=== PATIENT | male | born 1955 | race African-American/Black ===

== ENCOUNTER 2019-05-18 18:11 | Emergency (ER) | payer MEDICARE ==
[~2019-05-18 18:11] MED LIST: BACTRIM DS TABL1 TAB PO; HYDROCODONE-APA1 TAB PO
[2019-05-18 18:18] VITALS: Ht 188 cm
[2019-05-18] MEDS ORDERED: VIBRAMYCIN 100100 MG PO (19:10)
[2019-05-18 20:36] VITALS: BP 174/115
== END 2019-05-18 20:36 | disposition home or self-care (01) ==
LOC: D.ER 18:11
DX: M79.671 Pain in right foot (principal); M79.5 Residual foreign body in soft tissue; W22.8XXA Striking against or struck by other objects, initial encounter; Y93.01 Activity, walking, marching and hiking; Y92.9 Unspecified place or not applicable

== ENCOUNTER 2019-06-23 16:38 | Inpatient (IN) | payer MEDICARE ==
[~2019-06-23] VITALS: Ht 185.4 cm; Wt 181.8 kg
--- NOTE | ~2019-06-23 | HEMODYNAMI ---
PATIENT:AKOSUA IVORY MEDICAL RECORD: [id number] : 57 [id number] ADMISSION DATE: 06/23/19 Generatedon:06/25/201912:25 Patient name: AKOSUA IVORY Patient #: [id number] : 1955 Date of study: 06/25/2019 Page: Of Hemodynamic Procedure Report Patient Data Patient Demographics Procedure consent was obtained First Name: AKOSUA Gender: Male Last Name: DIANELYS : 1955 Patient #: [id number] Age: 63 year(s) Race: Black SSN: [id number] Additional ID: [id number] Contact details Address: [address] [place] [address] [address] State: [place]: [facility] [place] code: [address] Admission Admission Data Admission Date: 06/23/2019 Admission Time: 16:38 Arrival Date: 06/23/2019 Arrival Time: 16:38 Admit Source: Emergency Insurance Payor: Medicare department HIC #: [id number] Room #: D.2133 Height (in.): 62.2 BSA: 2.57 (m2) Height (cm.): 158 BMI: 72.5 (kg/m2) Weight (lbs.): 399.04 Weight (kg.): 181 Lab Results Lab Result Date: 06/25/2019 Lab Result Time: 0:00 Biochemistry Name Units Result Min Max BUN mg/dl 20 --(----)*- 7 18 Creatinine mg/dl 1.9 --(----)-* 0.6 1.3 eGFR ml/min 46 *-(----)-- 90 120 AM CBC Name Units Result Min Max Hemoglobin g/dl 13.4 -*(----)-- 13.5 17.5 Procedure Procedure Types Cath Procedure Diagnostic Procedure LHC LHC w/Coronaries Sedation Charges Moderate Sedation up to 15 minutes Procedure Description Procedure Date Procedure Date: 06/25/2019 Procedure Start Time: 11:55 Procedure End Time: 12:21 Procedure Staff Name Function Octavio Peraza MD Performing Physician Sherry Squires RT Monitor Cherri Page RT Scrub Coco Carranza RN Nurse Procedure Data Cath Procedure Fluoroscopy Diagnostic fluoroscopy Total fluoroscopy Time: 1.9 time: 1.9 min min Diagnostic fluoroscopy Total fluoroscopy dose: 618 dose: 618 mGy mGy Contrast Material Contrast Material Type Amount (ml) Isovue 300 37 Entry Location Entry Primary Successful Side Size Upsize Upsize Entry Closure Elena ccessful Closure Location (Fr) 1 (Fr) 2 (Fr) Remarks Device Remarks Radial Right 6 Fr Mechanical artery Short Compression Estimated blood loss: 5 ml Diagnostic catheters Device Type Used For End Catheter Placement DIAGNOSTIC [place] 110cm 5 Multi-vessel Fr catheter ([id number]) Angiography Procedure Complications No complications Procedure Medications Medication Administration Route Dosage Oxygen etCO2 Nasal cannula 3 l/min Lidocaine 2% added to field 20 Heparin Flush Bag added to field 2 bags (1000units/500ml NS) 0.9% NaCl I.V. 100 ml/hr Versed I.V. 1 mg Fentanyl I.V. 50 mcg Versed I.V. 1 mg Fentanyl I.V. 50 mcg Fentanyl I.V. 50 mcg Fentanyl I.V. 50 mcg Radial Cocktail I.A. 1 syringe (Verapamil 2mg/Nitro 400mcg/Heparin 1500units) Hemodynamics Rest BSA: 2.57 (m2) HGB: 13.4 (g/dl) O2 Consumption: Estimated: 302.03 (ml/min) O2 Co nsumption indexed: Estimated:117.52 (ml/min/m) Heart Rate: 71 (bpm) Pressure Samples Time Site Value (mmHg) Purpose Heart Use Rate(bpm) 12:14 LV 122/15,17 Snapshot 97 Snapshots Pre Cath Intra NCS Post Cath Vital Signs Time Heart Resp SPO2 etCO2 NIBP (mmHg) Rhythm Pain Sedation Rate (ipm) (%) (mmHg) Status Level (bpm) 11:51:29 75 15 96 0 186/129(151) NSR 0 (11) 10(A) , No pain 11:55:59 75 24 98 31.8 185/114(145) NSR 0 (11) 10(A) , No pain 12:00:30 74 21 99 30.3 176/123(141) NSR 0 (11) 10(A) , No pain 12:05:00 73 14 98 26.5 195/118(141) NSR 0 (11) 10(A) , No pain 12:09:22 64 25 97 32.6 175/112(140) NSR 0 (11) 10(A) , No pain 12:13:45 73 18 99 20.5 173/122(135) NSR 0 (11) 10(A) , No pain 12:18:11 75 28 96 28.8 163/112(137) NSR 0 (11) 10(A) , No pain Medications Time Medication Route Dose Verified Delivered Reason Notes Effectiveness by by 11:49:40 Oxygen etCO2 3 l/min Octavio Sepulvdea used for Nasal Karmen Carranza RN procedure cannula 11:49:47 Lidocaine 2% added 20ml Octavio Cunningham for local to vial Karmen Peraza MD anesthetic field 11:49:53 Heparin Flush added 2 bags Octavio Cunningham used for Bag to Karmen Peraza MD procedure (1000units/500ml field NS) 11:50:01 0.9% NaCl I.V. 100 Octavio Sepulveda Per ml/hr Karmen Carranza RN physician 11:54:36 Versed I.V. 1 mg Octavio Sepulveda for sedation Karmen Carranza RN 11:54:43 Fentanyl I.V. 50 mcg Octavio Sepulveda for sedation Karmen Carranza RN 12:00:06 Versed I.V. 1 mg Octavio Sepulveda for sedation Karmen Carranza RN 12:00:10 Fentanyl I.V. 50 mcg Octavio Sepulveda for sedation Karmen Carranza RN 12:06:33 Fentanyl I.V. 50 mcg Octavio Sepulveda for sedation Karmen Carranza RN 12:13:12 Radial Cocktail I.A. 1 Octavio Cunningham for (Verapamil syringe Karmen Peraza MD vasodilation 2mg/Nitro 400mcg/Heparin 1500units) 12:14:09 Fentanyl I.V. 50 mcg Octavio Sepulveda for sedation Kamren Carranza RN Procedure Log Time Note 11:30:47 Informed consent obtained and on chart 11:33:47 Diagnostic Cath Status : Urgent 11:34:04 Coco Carranza RN sent for patient. Start room use. 11:34:05 Time tracking: Regular hours (M-F 7:00 - 5:00) 11:34:11 Plan of Care:Hemodynamics will remain stable., Cardiac rhythm will remain stable., Comfort level will be maintained., Respiratory function will remain adequate., Patient/ family verbilizes understanding of procedure., Procedure tolerated without complication., Recovers from procedure without complications.. 11:34:24 Arrival Date: 06/23/2019 4:38:00 PM 11:34:47 Admit Source: Emergency department 11:34:55 Insurance Payor : Medicare 11:35:01 Patient Height : 62.2 inches 11:35:05 Patient Weight : 399.04 lbs 11:35:33 Lab Result : Hemoglobin 13.4 g/dl 11:35:33 Lab Result : eGFR AM 46 ml/min 11:35:33 Lab Result : BUN 20 mg/dl 11:35:33 Lab Result : Creatinine 1.9 mg/dl 11:35:40 Patient received from Med II to CCL 1 Alert and oriented. Tansferred to table in Supine position. 11:35:41 Warm blankets applied, and david hugger turned on for patient comfort. 11:35:41 Correct patient and procedure confirmed by team. 11:35:42 ECG and BP/O2 sat monitors applied to patient. 11:49:29 Vital chart was started 11:49:40 Oxygen 3 l/min etCO2 Nasal cannula was administered by Coco Carranza RN; used for procedure; Verbal order read back and verified. 11:49:47 Lidocaine 2% 20ml vial added to field was administered by Octavio Peraza MD; for local anesthetic; Verbal order read back and verified. 11:49:53 Heparin Flush Bag (1000units/500ml NS) 2 bags added to field was administered by Octavio Peraza MD; used for procedure; Verbal order read back and verified. 11:50:01 0.9% NaCl 100 ml/hr I.V. was administered by Coco Carranza RN; Per physician; Verbal order read back and verified. 11:50:51 Baseline sample Acquired. 11:50:59 Rhythm: sinus rhythm 11:51:01 Full Disclosure recording started 11:51:10 H&P Date Dictated: 06/25/2019 Within 30 days and on chart., H&P Addendum completed by physician on day of procedure. (MUST COMPLETE FOR ALL OUTPATIENTS). 11:51:39 Pre-procedure instructions explained to patient. 11:51:39 Pre-op teaching completed and patient verbalized understanding. 11:51:41 Family in waiting room. 11:51:45 Patient NPO since Midnight. 11:51:47 Is the patient allergic to Iodine/contrast media? No. 11:51:53 Was the patient premedicated? Yes 11:52:10 Is patient on blood thinner?Yes 11:52:14 ACC The patient was administered the following blood thiners within the last 24 hours: ACCPlavix 11:52:29 Patient diabetic? No. 11:52:33 Previous problem with sedation/anesthesia? Yes ? 11:52:51 Snore? Yes 11:52:52 Sleep apnea? Yes 11:52:54 Deviated septum? No 11:52:54 Opens mouth fully? Yes 11:52:56 Sticks out tongue? Yes 11:53:00 Airway obstruction? No ? 11:53:13 Dentures? No ? 11:53:16 Pre procedure: right dorsailis pedis pulse 2+ Normal; easily identifiable; not easily obliterated 11:53:18 Pre procedure: left dorsailis pedis pulse 2+ Normal; easily identifiable; not easily obliterated 11:53:24 IV patent on arrival in left forearm with 0.9% NaCl at [facility]. 11:53:27 Lab results completed and on chart. 11:53:33 Stress Test: no; N/A ? 11:53:38 Right Radial & Right Groin area was prepped with chlora-prep and draped in sterile fashion 11:53:38 Alarms reviewed by R. N. 11:53:39 Sharps counted by scrub and verified by R.N. 11:53:41 Physician arrived 11:53:41 --------ALL STOP TIME OUT------ 11:53:42 Final Timeout: patient, procedure, and site verified with staff and physician. All members of the team are in agreement. 11:53:44 Right Radial & Right Groin site verified by team. 11:53:47 Fire Safety Assessment: A--An alcohol-based skin anteseptic being used preoperatively., C--Open oxygen or nitrous oxide is being used., D--An ESU, laser, or fiber-optic light is being used. 11:54:17 Physical assessment completed. ASA score P 2 - A patient with mild systemic disease as per Octavio Peraza MD. 11:54:36 Versed 1 mg I.V. was administered by Coco Carranza RN; for sedation; Verbal order read back and verified. 11:54:43 Fentanyl 50 mcg I.V. was administered by Coco Carranza RN; for sedation; Verbal order read back and verified. 11:54:49 3a) 45-59 Moderately reduced kidney function. 11:54:53 Maximum allowable contrast dose (3.7 X eGFR X 0.75)127 ml. 11:54:57 Sedation plan: IV Moderate Sedation Medication:Versed, Fentanyl 11:55:00 Use device set Radial Dx or PCI 11:55:01 ACIST Syringe (32915) opened to sterile field. 11:55:02 Medline Cath Pack ([id number]) opened to sterile field. 11:55:02 Bag Decanter (2002S) opened to sterile field. 11:55:03 ACIST Hand Control (95389) opened to sterile field. 11:55:03 ACIST Manifold (31411) opened to sterile field. 11:55:03 Tegaderm 4 x 4 (1626W) opened to sterile field. 11:55:04 MBrace Wrist Support ([id number]) opened to sterile field. 11:55:06 EMERALD Guide Wire (329-182) opened to sterile field. 11:55:08 SHEATH 6FR RAIN (3961415) opened to sterile field. 11:55:12 Procedure started. 11:55:17 Local anesthetic to right radial artery with Lidocaine 2% by Octavio Peraza MD.INITIAL ACCESS ONLY 12:00:06 Versed 1 mg I.V. was administered by Coco Carranza RN; for sedation; Verbal order read back and verified. 12:00:10 Fentanyl 50 mcg I.V. was administered by Coco Carranza RN; for sedation; Verbal order read back and verified. 12:06:33 Fentanyl 50 mcg I.V. was administered by Coco Carranza RN; for sedation; Verbal order read back and verified. 12:12:04 A 6 Fr Short sheath was inserted into the Right Radial artery 12:12:12 A DIAGNOSTIC [place] 110cm 5 Fr catheter (399340) was advanced over the wire and used for Multi-vessel Angiography. 12:13:12 Radial Cocktail (Verapamil 2mg/Nitro 400mcg/Heparin 1500units) 1 syringe I.A. was administered by Octavio Peraza MD; for vasodilation; Verbal order read back and verified. 12:14:09 Fentanyl 50 mcg I.V. was administered by Coco Carranza RN; for sedation; Verbal order read back and verified. 12:14:57 LV hemodynamics recorded. 12:14:58 LV gram done using DIAZ 12:15:01 Injector settings: Ml/sec: 5, Volume: 15, 12:15:07 EF : 35 % 12:15:12 LCA angiography performed. 12:15:14 Injector settings: Ml/sec: 3, Volume: 6, 12:16:16 RCA angiography performed. 12:16:18 Injector settings: Ml/sec: 3, Volume: 6, 12:17:10 Catheter removed. 12:17:16 ZEPHYR LARGE TR BAND (728539) opened to sterile field. 12:17:28 Sheath removed intact; hemostasis achieved with Mechanical Compression to the Right Radial artery. 12:17:30 Procedure ended.(Physican Out) 12:17:50 Fluoroscopy time 01.90 minutes. 12:17:55 Fluoroscopy dose: 618 mGy 12:17:55 Flurop Dose total: 618 12:18:02 Dose Area Product 96893 mGy/cm. 12:18:11 Contrast amount:Isovue 300 37ml. 12:18:12 Maximum allowable dose exceeded? No. 12:18:14 Sharps counted by scrub and verified by R.N. 12:18:16 [place] band inflated with 10cc of air. 12:18:18 Insertion/operative site no bleeding no hematoma. 12:18:26 Post right radial artery:stable 12:18:27 Post Procedure Pulses reassessed and unchanged 12:18:31 Post procedure rhythm: unchanged. 12:18:33 Estimated blood loss: 5 ml 12:18:34 Post procedure instruction explained to patient.Patient verbalizes understanding. 12:18:49 Patient needs reinforcement of post procedure teaching. 12:19:10 Procedure type changed to Cath procedure, Diagnostic procedure, LHC, LHC w/Coronaries, Sedation Charges, Moderate Sedation up to 15 minutes 12:19:11 Procedure and supply charges have been captured, reviewed, submitted and are correct. 12:19:15 Procedure Complication : No complications 12:19:18 Vital chart was stopped 12:19:24 [facility] Findings: mild to moderate CAD (<70%) 12:19:27 Operative report dictated upon procedure completion. 12:19:28 See physician's report for complete and final results. 12:20:55 Report given to [facility]. 12:20:58 Patient transfered to [facility] with Stretcher. 12:21:03 Procedure ended. 12:21:03 Full Disclosure recording stopped 12:21:12 End room use (Document Last) Device Usage Item Name Manufacture Quantity Catalog Hospital Part Current Minima l Lot# / Number Charge Number Stock Stock Serial# Code ACIST Acist 1 67063 028969 038332 043969 20 Syringe Medical (09677) Systems Inc Medline Medline 1 [id number] 17771 865612 5 Cath Pack ([id number]) Bag Microtek 1 2001S 190023 06272 507642 5 Decanter Medical Inc. () ACIST Hand Acist 1 47684 107230 818836 736345 5 Control Medical (15311) Systems Inc ACIST Acist 1 26288 581391 980301 304934 5 Manifold Medical (69111) Systems Inc Tegaderm 4 3M 1 1626W 132157 599574 995461 5 x 4 (1626W) MBrace Advanced 1 140-0250-00 909606 77775 893831 5 Wrist Vascular Support Dynamics ([id number]) EMERALD Cardinal 1 502-455 538558 165026 639741 5 Guide Wire Health (502-455) SHEATH 6FR Cardinal 1 [id number] 855740 4570431 733928 5 RAIN Health (8380848) DIAGNOSTIC Terumo 1 40-7270 983233 723650 835804 5 [place] 110cm 5 Fr catheter (277092) ZEPHYR Cardinal 1 435455 860905 2099394 949311 5 LARGE TR Health BAND (090470) Signature Audit [place] Stage Time Signature Unsigned Intra-Procedure 06/25/2019 Sherry Squires 12:24:56 PM RT(R) Intra-Procedure 06/25/2019 Coco Carranza RN 12:25:18 PM Intra-Procedure 06/25/2019 Octavio Peraza 12:25:48 PM [facility] [address] [facility] [place] [address]
--- NOTE | ~2019-06-23 | CN ---
PATIENT NAME:AKOSUA IVORY MEDICAL RECORD: [id number] : 57 LOCATION:D. D.2133 ADMIT DATE: 06/23/19 ACCOUNT: [id number] CONSULTING PHYSICIAN: CHETNA LAWSON MD REFERRING PHYSICIAN: DIEGO GEE MD DATE OF CONSULTATION: 06/24/2019 ADMITTING DIAGNOSES: 1. Congestive heart failure, chronic systolic dysfunction. 2. Cardiomyopathy. 3. Hypertension. 4. Angina. 5. Shortness of breath. 6. Edema. 7. Obesity. HISTORY OF PRESENT ILLNESS: This is a gentleman with no previous cardiac history, who for the past 6 months has had progressive edema, shortness of breath as well as chest heaviness and chest pressure. He has not had a cardiac evaluation. He had an echocardiogram at [facility] revealing cardiomyopathy, ejection fraction in the 35% range. He was in a marked fluid overload state. He is being admitted for diuresis. PHYSICAL EXAMINATION: CONSTITUTIONAL/GENERAL APPEARANCE: Well nourished, well developed, appears stated age. EYES: Lids and conjunctivae noninjected. No discharge. No pallor. ENT: Lips within normal limit. No cyanosis. No pallor. NECK: Carotid arteries, bilateral normal upstroke. No bruits. No thrills. No jugular venous pressure or distention. CERVICAL LYMPH NODES: Nontender. Nonenlarged. THYROID: Not enlarged. No nodules. CARDIOVASCULAR: Precordial exam, nondisplaced. No heaves or pericardial thrills. Rate and rhythm, regular. Heart sounds, normal S1, normal S2. No S3, no gallop, no rub. Systolic murmur, not heard. Diastolic murmur, not heard. RESPIRATORY: Respiratory effort, unlabored. Normal curvature. No thoracic deformity. No chest wall tenderness. Percussion, resonant. Auscultation, clear. No wheezes, no rales, no rhonchi. ABDOMEN: Soft, nondistended, nontender. No abdominal pain, no vomiting and normal appetite. MUSCULOSKELETAL: No joint tenderness, normal gait, normal tone. SKIN: Warm and dry. OVERALL IMPRESSION: Cardiomyopathy. He has a high likelihood that this is ischemic in nature. We will proceed with coronary angiography in the a.m. Continue diuresis, increase his Coreg, continue the Entresto, increase the Lasix frequency. Further care depends upon the results with the medical therapy as well as the results of the cardiac catheterization. TRANSINT:[id number] Voice Confirmation ID: [id number] DOCUMENT ID: [id number] CONSULT REPORT [id number] AKOSUA IVORY JEFFREY MD CC: [id number] DICTATION DATE: 06/24/19 1042 OCCUPATIONAL PHYSICIAN: 06/24/19 1553 ADM IN [facility] [address] [place] [id number]
--- NOTE | ~2019-06-23 | OP ---
PATIENT NAME: AKOSUA IVORY MEDICAL RECORD: [id number] :57 LOCATION:D.M2 D.2133 ADMISSION DATE:06/23/19 SURGEON: CHETNA LAWSON MD DATE OF OPERATION: 06/25/2019 PROCEDURES: 1. Left heart catheterization. 2. Selective coronary angiography. 3. Left ventriculogram. INDICATION: Cardiomyopathy, congestive heart failure. PROCEDURE IN DETAIL: After informed consent was obtained and after a detailed description of the risks, benefits as well as alternative therapies, the patient elected to proceed with angiogram and angioplasty. The radial area was prepped and draped in normal sterile fashion. Right radial artery was cannulated via modified Seldinger technique with placement of 6-Dutch sheath. All catheters exchanged through this sheath. FINDINGS: Left ventriculogram was performed in standard 30-degree DIAZ view, reveals global hypokinesis, ejection fraction in the 35% range. SELECTIVE CORONARY ANGIOGRAPHY: Left main, left anterior descending, left circumflex, right coronary are all smooth-walled vessels with no angiographic evidence of coronary artery disease. OVERALL IMPRESSION: 1. No angiographic evidence of coronary artery disease. 2. Normal left heart pressures. 3. No significant angiographic disease is present. Cardiomyopathy, nonischemic, ejection fraction 35%. Center medical management on treatment of the cardiomyopathy and congestive heart failure. TRANSINT:[id number] Voice Confirmation ID: [id number] DOCUMENT ID: [id number] CHETNA LAWSON MD CC: [id number] DICTATION DATE: 06/25/19 1223 COTTON BALL MACHINE TENDER: 06/25/19 1859 ADM IN [facility] [address] [place] [address]
[~2019-06-23 16:38] MED LIST changes: +VIBRAMYCIN 100100 MG PO
[2019-06-23 19:18] LABS: BASOPHILS 0.1 % (0-2); EOSINOPHILS 1.6 % (0-7); HEMATOCRIT 37.8 % (42.0-54.0); HEMOGLOBIN 12.8 g/dL (13.5-17.5); IMMATURE GRANULOCYTES 0.2 % (0-5); LYMPHOCYTES 23.2 % (15-50); MCHC 33.9 g/dL (31.0-37.0); MCV 85.5 fL (80.0-100.0); MEAN PLATELET VOLUME 10.1 fL (7.4-10.4); MONOCYTES 6.6 % (2-11); NEUTROPHILS 68.3 % (40-80); RBC 4.42 10x6/uL (4.20-6.10); RDW 14.5 % (11.5-14.5); WBC 8.2 10x3/uL (4.8-10.8)
[2019-06-23 19:26] LABS: PLATELET COUNT 352 10x3/uL (130-400)
[2019-06-23 19:37] LABS: ALBUMIN 3.4 g/dL (3.4-5.0); BILIRUBIN - TOTAL 0.84 mg/dL (0.2-1.3); CALCIUM 8.8 mg/dL (8.5-10.1); CARBON DIOXIDE 27.9 mmol/L (21.0-32.0); CREATININE - SERUM 1.6 mg/dL (0.6-1.3); MAGNESIUM - SERUM 1.9 mg/dL (1.8-2.4); POTASSIUM - SERUM 3.9 mmol/L (3.5-5.1); PROTEIN - SERUM 8.7 g/dL (6.4-8.2)
--- NOTE | 2019-06-23 20:00 | NUR ---
TALKED WITH NAZANIN MATOS ABOUT PATIENTS B/P, NEW ORDERS GIVEN AND WILL FOLLOW.
--- NOTE | 2019-06-23 22:50 | NUR ---
LEFT HAND PIV PLACED, 22 GAUGE 1 STICK PATIENT TOLERATED WELL. PT'S B/P 179/117, WILL TREAT PER JUN.
[2019-06-24] VITALS: BP 179/117
--- NOTE | 2019-06-24 01:21 | NUR ---
PATIENT COMPLAINS OF CHEST DISCOMFORT, MANNULA B/P OF 170/100, EKG DONE, SEA [place].
[2019-06-24 02:42] LABS: CKMB 0.7 U/L (0.0-3.6); CREATINE KINASE 83 UL (21-232); TROPONIN-I < 0.017 ng/mL (0.000-0.060)
[2019-06-24 04:00] VITALS: BP 162/93
[2019-06-24 05:10] LABS: BASOPHILS 0.2 % (0-2); EOSINOPHILS 2.2 % (0-7); HEMATOCRIT 38.4 % (42.0-54.0); IMMATURE GRANULOCYTES 0.2 % (0-5); MCH 28.7 pg (26.0-34.0); MCHC 33.9 g/dL (31.0-37.0); MCV 84.8 fL (80.0-100.0); MEAN PLATELET VOLUME 10.4 fL (7.4-10.4); MONOCYTES 7.1 % (2-11); NEUTROPHILS 66.3 % (40-80); PLATELET COUNT 366 10x3/uL (130-400); RBC 4.53 10x6/uL (4.20-6.10); RDW 14.9 % (11.5-14.5); WBC 8.6 10x3/uL (4.8-10.8)
[2019-06-24 05:42] LABS: ALBUMIN 3.4 g/dL (3.4-5.0); ANION GAP 11.7 mmol/L (8-16); BILIRUBIN - TOTAL 1.12 mg/dL (0.2-1.3); CALCIUM 8.9 mg/dL (8.5-10.1); CARBON DIOXIDE 28.7 mmol/L (21.0-32.0); CREATININE - SERUM 1.7 mg/dL (0.6-1.3); MAGNESIUM - SERUM 1.9 mg/dL (1.8-2.4); POTASSIUM - SERUM 3.4 mmol/L (3.5-5.1); PROTEIN - SERUM 8.9 g/dL (6.4-8.2)
--- NOTE | 2019-06-24 07:00 | NUR ---
RECEIVED REPORT. ASSUMED CARE OF PATIENT. RESP EVEN AND UNLABORED. RESTING WITH EYES CLOSED. NO DISTRESS. CALL LIGHT WITHIN REACH.
[2019-06-24 08:50] LABS: % SATURATION 17 % (15-55); IRON 44 ug/dl (35-150); TOTAL IRON BIND CAPACITY 251 ug/dl (260-445); UNSAT IRON BIND CAPACITY 207 ug/dl (150-375)
[2019-06-24 08:53] LABS: CKMB 0.7 U/L (0.0-3.6); CREATINE KINASE 80 UL (21-232)
[2019-06-24 08:56] LABS: TROPONIN-I < 0.017 ng/mL (0.000-0.060)
[2019-06-24 09:07] VITALS: BP 150/85
--- NOTE | 2019-06-24 09:30 | NUR ---
OOB TO CHAIR AT BEDSIDE. CALL LIGHT WITHIN REACH. NO DISTRESS.
--- NOTE | 2019-06-24 12:46 | NUR ---
URINE SUBMITTED TO LAB.
[2019-06-24 12:51] LABS: BILIRUBIN NEGATIVE (NEGATIVE); GLUCOSE NEGATIVE (NEGATIVE); KETONE NEGATIVE (NEGATIVE); NITRITE NEGATIVE (NEGATIVE); SPECIFIC GRAVITY 1.005 (1.005-1.020); UROBILINOGEN NORMAL (NORMAL)
[2019-06-24 12:58] LABS: CREATININE - URINE 8.1 mg/dL (30-125); PROTEIN - URINE 36.1 mg/dL (0.0-11.9)
[2019-06-24 13:35] VITALS: BP 163/88
--- NOTE | 2019-06-24 15:00 | NUR ---
PATIENT SITTING IN CHAIR AT BEDSIDE. CALL LIGHT WITHIN REACH. NO DISTRESS. DENIES NEEDS AT THIS TIME.
[2019-06-24 15:01] LABS: CKMB 0.8 U/L (0.0-3.6); CREATINE KINASE 88 UL (21-232); TROPONIN-I 0.018 ng/mL (0.000-0.060)
[2019-06-24 15:56] VITALS: Ht 185.4 cm; Wt 181.8 kg
--- NOTE | 2019-06-24 18:25 | NUR ---
APPLE JUICE PROVIDED UPON REQUEST.
--- NOTE | 2019-06-24 19:45 | NUR ---
REPORT RECIEVED AND INITIAL ROUNDS COMPLETED. PT RESTING IN BEDSIDE CHAIR. NO DISTRESS. PT TEACHING ON PREP FOR UPCOMING HEART CATH IN AM. NPO AFTER MIDNIGHT. SR PER TELEMETRY. CALL LIGHT IN REACH. CPOC.
[2019-06-24 20:00] VITALS: BP 146/84
[2019-06-25] VITALS: BP 131/70
--- NOTE | 2019-06-25 01:23 | NUR ---
PT RESTING IN BED. HAS TAKEN A SHOWER AND BATHED FOR AM HEART CATH. CPOC.
[2019-06-25 04:00] VITALS: BP 124/77
[2019-06-25 05:50] LABS: BASOPHILS 0.1 % (0-2); EOSINOPHILS 4.1 % (0-7); HEMATOCRIT 39.3 % (42.0-54.0); HEMOGLOBIN 13.4 g/dL (13.5-17.5); IMMATURE GRANULOCYTES 0.2 % (0-5); LYMPHOCYTES 28.5 % (15-50); MCH 28.8 pg (26.0-34.0); MCHC 34.1 g/dL (31.0-37.0); MCV 84.5 fL (80.0-100.0); MEAN PLATELET VOLUME 10.4 fL (7.4-10.4); MONOCYTES 8.2 % (2-11); NEUTROPHILS 58.9 % (40-80); PLATELET COUNT 388 10x3/uL (130-400); RBC 4.65 10x6/uL (4.20-6.10); WBC 8.8 10x3/uL (4.8-10.8)
[2019-06-25 06:09] LABS: ALBUMIN 3.1 g/dL (3.4-5.0); ANION GAP 12.7 mmol/L (8-16); BILIRUBIN - TOTAL 0.85 mg/dL (0.2-1.3); CALCIUM 8.5 mg/dL (8.5-10.1); CARBON DIOXIDE 28.9 mmol/L (21.0-32.0); CREATININE - SERUM 1.9 mg/dL (0.6-1.3); MAGNESIUM - SERUM 1.9 mg/dL (1.8-2.4); POTASSIUM - SERUM 3.6 mmol/L (3.5-5.1); PROTEIN - SERUM 8.3 g/dL (6.4-8.2)
--- NOTE | 2019-06-25 07:20 | NUR ---
RECIEVE REPORT. SITTING UP IN BED. ALERT AND ORIENTED X4. DENIES ANY NEEDS. CALLS FOR ASSISTANCE IF NEEDED.
[2019-06-25 07:30] VITALS: BP 182/86
--- NOTE | 2019-06-25 12:40 | NUR ---
ARRIVE BACK TO ROOM FROM NETTING WEAVER. BP-136/67, HR-73, O2-95% RA. RT WRIST ZYTHRO BAND CLEAN DRY INTACT. FREE FROM BLEEDING. FREE FROM HEMATOMA. CONTINUE PLAN OF CARE AND SAFEY PRECAUTIONS.
[2019-06-25 15:30] VITALS: BP 120/82
--- NOTE | 2019-06-25 19:22 | NUR ---
RECEIVED UP IN BED WITH EYES OPEN AND TV ON. ALERT AND ORIENTED X4. UP AD ZAHIRA TO B/R. IV TO LEFT HAND SL.. TELEMETRY IN PLACE. TR BAND REMOVED AND BANDAIDE PLACED. DENIES ANY NEEDS AT THIS TIME.
[2019-06-25 20:00] VITALS: BP 122/87
[2019-06-26 00:01] VITALS: BP 144/94
[2019-06-26 05:21] LABS: BASOPHILS 0.1 % (0-2); EOSINOPHILS 4.3 % (0-7); HEMATOCRIT 39.3 % (42.0-54.0); HEMOGLOBIN 13.4 g/dL (13.5-17.5); LYMPHOCYTES 38.4 % (15-50); MCH 28.9 pg (26.0-34.0); MCHC 34.1 g/dL (31.0-37.0); MCV 84.9 fL (80.0-100.0); MEAN PLATELET VOLUME 10.6 fL (7.4-10.4); MONOCYTES 8.1 % (2-11); NEUTROPHILS 49.1 % (40-80); PLATELET COUNT 391 10x3/uL (130-400); RBC 4.63 10x6/uL (4.20-6.10); RDW 14.9 % (11.5-14.5); WBC 8.9 10x3/uL (4.8-10.8)
[2019-06-26 07:35] LABS: ALBUMIN 3.2 g/dL (3.4-5.0); ANION GAP 13.2 mmol/L (8-16); BILIRUBIN - TOTAL 0.53 mg/dL (0.2-1.3); CALCIUM 8.5 mg/dL (8.5-10.1); CARBON DIOXIDE 28.2 mmol/L (21.0-32.0)
[2019-06-26 07:37] LABS: POTASSIUM - SERUM 4.4 mmol/L (3.5-5.1)
--- NOTE | 2019-06-26 07:51 | NUR ---
LT HAND IV INFILTRATED, D/C IV WITH CATHETER TIP INTACT. RT WRIST BANDAID CDI Z BAND IN PLACE PER PT REQUEST. PT A/O X4, RESP EVEN AND NONLABORED ON RA. CALL LIGHT IN REACH, BEDSIDE RAILS X2, NAD NOTED, WILL CONTINUE TO MONITOR.
--- NOTE | 2019-06-26 08:38 | NUR ---
AM MEDS GIVEN AT THIS TIME. PT UP TO CHAIR, A/O X4, RESP EVEN AND NONLABORED ON RA. PT DENIES ANY NEEDS AT THIS TIME. CALL LIGHT IN REACH, NAD NOTED, WILL CONTINUE TO MONITOR.
[2019-06-26 09:52] VITALS: BP 158/90
--- NOTE | 2019-06-26 10:39 | NUR ---
WENT TO START NEW IV, PT REFUSED TO HAVE ANOTHER IV STARTED AT THIS TIME. STATED THAT HE ALREADY HAD ONE GO BAD AND HE IS CONCERN THAT HE IS GOING TO HAVE SOME DAMAGE TO HIS ARM FROM WERE THE IV INFILTRATED. DID PT TEACHING ON IV INFILTRATION AND HOW THE SWELLING WILL GO AWAY, BUT WILL TAKE SOME TIME. WILL CHECK WITH HOWARD DAY TO SEE IF PT IS POSSIBLY GOING HOME TODAY.
[2019-06-26] MEDS ORDERED: LIPITOR20 MG PO (11:16)
[2019-06-26] MEDS ORDERED: NORVASC10 MG PO (11:16)
[2019-06-26] MEDS ORDERED: COREG12.5 MG PO (11:16)
[2019-06-26] MEDS ORDERED: ENTRESTO 24 MG1 EACH PO (11:16)
[2019-06-26] MEDS ORDERED: HYDRALAZINE HCL50 MG PO (11:17)
[2019-06-26] MEDS ORDERED: BUMEX2 MG PO (11:17)
--- NOTE | 2019-06-26 13:52 | NUR ---
WENT TO PROVIDED DISCHARGE TEACHING TO PT AND PT STATED THAT THE DOCTOR DID NOT EVEN STOP BY TO SEE HIM TODAY. WANTS TO SEE THE DOCTOR BEFORE HE WILL SIGN HIS DISCHARGER PAPERS. CONCERN ABOUT HIS ARM WHERE HIS IV INFILTRATED. TRIED TO EXPLAIN AGAIN TO PT THAT THE SWELLING WILL GO DOWN BUT IT WILL TAKE SOMETIME AND THAT HE WILL NOT HAVE ANY DAMAGE FROM IV INFILTRATING. PT STILL WANTS TO TALK TO DOCTOR. NOTIFIED HOWARD DAY ABOUT PT WANTING TO TALK TO DR. HIGGINS.
--- NOTE | 2019-06-26 15:00 | NUR ---
WENT TO SEE IF PT HAD ALREADY TALKED TO DR. RING. AND WHEN I WENT INTO HIS ROOM THERE WAS NO ONE IN THE ROOM AND HIS PAPERWORK WAS GONE AND HEART MONITOR LAYING ON THE TABLE. PT LEFT WITHOUT SIGNING DISCHARGE PAPERS.
--- NOTE | 2019-06-26 16:26 | MORECARE ---
CASE MANAGEMENT DISCHARGE SUMMARY PATIENT: AKOSUA IVORY UNIT: [id number] ADM DATE: 06/23/19 AGE: 63 : 57 SEX: M ROOM/BED: D.2133 AUTHOR: MICHAELDOC PHYSICIAN: REFERRING PHYSICIAN: DIEGO GEE MD DATE OF SERVICE: 06/26/19 Discharge Plan Patient Name: AKOSUA IVORY Facility: [facility]:[place] : 1955 Planned Disposition: Home Anticipated Discharge Date: 06/26/19 Discharge Date: 06/26/2019 Expected LOS: 3 Initial Reviewer: [id number] Initial Review Date: 06/26/2019 Generated: 06/26/19 5:25 pm Comments DCP- Discharge Planning Updated by [email or web address]: John Das on 06/26/19 3:[address] Patient Name: AKOSUA IVORY Admission Status: Urgent Accout number: [id number] Admission Date: 06-23-2019 : 1955 Admission Diagnosis: Attending: KARLOS Current LOS: 3 Anticipated DC Date: 06-26-2019 Planned Disposition: Home Primary Insurance: MEDICARE A & B Discharge Planning Comments: CM MET WITH PT IN ROOM TO DISCUSS DISCHARGE PLANNING AND NEEDS. PT REPORTS LIVING AT HOME INDEPENDENTLY AND ALONE. PT HAS FOUR PRONGED CANE AND NO MEDICAL EQUIPMENT PROVIDER PREFERENCE. PT HAS NO OUTSIDE SERVICES ASSISTING IN THE HOME. CM DISCUSSED AVAILABILITY OF HOME HEALTH, REHAB SERVICES AND MEDICAL EQUIPMENT. PT DENIES DISCHARGE NEEDS, REPORTS A FRIEND WILL PICK HIM UP FOR DISCHARGE HOME TODAY. IMPORTANT MESSAGE FROM MEDICARE PROVIDED AND EXPLAINED. Insurance Salesman: John Das DCPIA - Discharge Planning Initial Assessment Updated by [email or web address]: John Das on 06/26/19 4:23 pm * Is the patient Alert and Oriented? Yes * How many steps to enter\exit or inside your home? NONE * PCP Martha GEE * [facility] [address] * Preadmission Environment Home Alone * ADLs Independent * Equipment Cane * Other Equipment NO MEDICAL EQUIPMENT PROVIDER PREFERENCE * List name and contact numbers for known caregivers / representatives who currently or will assist patient after discharge: YOVANA BENAVIDEZ, SISTER, * Verbal permission to speak to the caregivers and representatives has been obtained from the patient. N/A * Community resources currently utilized None * Please name any agencies selected above. NONE * Additional services required to return to the preadmission environment? No * Can the patient safely return to the preadmission environment? Yes * Has this patient been hospitalized within the prior 30 days at any hospital? No Coverage Notice Reviewer: [id number] Clemente Das Notice Issued Date-Time: 06/26/2019 12:20 Notice Type: IM Discharge Notice Notice Delivered To: Patient Relationship to Patient: Pantograph I Engraver Name: Delivery Method: HAND - Hand Delivered Dayna Days: Prior Verbal Notification: Recipient Understood Notice: Yes Recipient Signature: Yes Med Rec Note Co-signed by Attending: Coverage Notice Comment: Patient Name: AKOSUA IVORY Page [id number] at 1626 All edits/amendments must be made on the electronic document DICTATION DATE: 06/26/196 MECHANICAL MAINTENANCE INSTRUCTOR: ABHIJEET 06/26/19 1626 RPT#: [id number] DC DATE:06/26/19 STATUS: DIS IN [facility] [address] [place] [address] END OF REPORT
[2019-06-27 17:08] LABS: UPE RAND - ALPHA 1 GLOBULIN 7.2 % (()); UPE RAND - ALPHA 2 GLOBULIN 5.8 % (()); UPE RAND - BETA GLOBULIN 11.7 % (()); UPE RAND - GAMMA GLOBULIN 13.3 % (())
== END 2019-06-26 15:00 | disposition home or self-care (01) | DRG 286 ==
LOC: D.SDCHOLD 16:38 → D.M2 16:38
PROVIDERS: Family Medicine; Internal Medicine Interventional Cardiology; Internal Medicine Nephrology; ADMIT Family Medicine; ATTEND Family Medicine
PROC: B2151ZZ Fluoroscopy of Left Heart using Low Osmolar Contrast (ICD-10-PCS; 2019-06-25)
PROC: 4A023N7 Measurement of Cardiac Sampling and Pressure, Left Heart, Percutaneous Approach (ICD-10-PCS; 2019-06-25)
PROC: B2111ZZ Fluoroscopy of Multiple Coronary Arteries using Low Osmolar Contrast (ICD-10-PCS; principal; 2019-06-25 11:34)
DX: I13.0 Hypertensive heart and chronic kidney disease with heart failure and stage 1 through stage 4 chronic kidney disease, or unspecified chronic kidney disease (principal); I50.23 Acute on chronic systolic (congestive) heart failure; N17.9 Acute kidney failure, unspecified; I16.9 Hypertensive crisis, unspecified; Z68.43 Body mass index [BMI] 50.0-59.9, adult; I42.0 Dilated cardiomyopathy; D64.9 Anemia, unspecified; E78.5 Hyperlipidemia, unspecified; E66.9 Obesity, unspecified; N18.9 Chronic kidney disease, unspecified; D50.9 Iron deficiency anemia, unspecified